=== PATIENT | male | born 1940 | race Caucasian/White ===

== ENCOUNTER 2016-11-25 14:02 | Observation (INO) | payer MEDICARE, OTHER ==
[~2016-11-25] VITALS: Ht 175.3 cm; Wt 74.2 kg
[2016-11-25 14:47] LABS: BASOPHILS 0.6 % (0.0-2.0); EOSINOPHILS 2.4 % (0-7); HEMATOCRIT 38.9 % (42.0-54.0); IMMATURE GRANULOCYTES 0.1 % (0-5); LYMPHOCYTES 22.4 % (15-50); MCH 30.4 pg (26.0-34.0); MCHC 33.4 g/dL (31.0-37.0); MCV 90.9 fL (80.0-100.0); MONOCYTES 10.4 % (2-11); NEUTROPHILS 64.1 % (40-80); PLATELET COUNT 215 10x3/uL (130-400); RBC 4.28 10x6/uL (4.20-6.10); RDW 14.6 % (11.5-14.5); WBC 10.5 10x3/uL (4.8-10.8)
[2016-11-25 14:52] LABS: APPEARANCE CLEAR (CLEAR); BILIRUBIN NEGATIVE (NEGATIVE); COLOR YELLOW (YELLOW); GLUCOSE NEGATIVE (NEGATIVE); KETONE NEGATIVE (NEGATIVE); LEUKOCYTE ESTERASE NEGATIVE (NEGATIVE); NITRITE NEGATIVE (NEGATIVE); PROTEIN NEGATIVE (NEGATIVE); SPECIFIC GRAVITY 1.015 (1.005-1.020); UROBILINOGEN NORMAL (NORMAL)
[2016-11-25 14:54] LABS: BACTERIA FEW /hpf (NONE SEEN); RED CELLS - URINE >50 /hpf (0-5); WHITE CELLS - URINE 0-5 /hpf (0-5)
[2016-11-25 14:58] LABS: APTT 29.1 SECONDS (22.8-39.4); INR 0.99 (0.85-1.17)
[2016-11-25 15:10] LABS: ALBUMIN 3.6 g/dL (3.4-5.0); ALKALINE PHOSPHATASE 69 U/L (46-116); ALT (SGPT) 21 U/L (10-68); BILIRUBIN - TOTAL 0.33 mg/dL (0.2-1.3); CALC OSMOLALITY 288 mosm/kg (275-300); CALCIUM 8.9 mg/dL (8.5-10.1); CARBON DIOXIDE 26.2 mmol/L (21.0-32.0); CHLORIDE - SERUM 110 mmol/L (98-107); GLUCOSE 92 mg/dL (74-106); POTASSIUM - SERUM 4.1 mmol/L (3.5-5.1); PROTEIN - SERUM 6.3 g/dL (6.4-8.2); SODIUM 144 mmol/L (136-145); UREA NITROGEN 18 mg/dL (7-18); eGFR NON AFRICAN AMERICAN 77 mL/min (90-120)
--- NOTE | 2016-11-25 18:33 | NUR ---
JUST RECEIVED PT VIA WHEELCHAIR ESCORTED BY HOSPITAL STAFF AND FAMILY. ON ROOM AIR. IV SEEN TO LEFT AC THAT IS CURRENTLY SALINE LOCKED. PT IS ALERT AND ORIENTED. UP AD ELIF. INSTRUCTED TO INFORM STAFF IF NEEDING ASSISTANCE AMBULATING. WILL DO QUICKSTART AND PASS THIS ALONG IN REPORT.
[2016-11-25] MEDS ORDERED: KLONOPIN1 MG PO (18:37)
[2016-11-25] MEDS ORDERED: NAPROSYN500 MG PO (18:37)
[2016-11-25] MEDS ORDERED: ROXICODONE15 MG PO (18:43)
[2016-11-25] MEDS ORDERED: REMERON30 MG PO (18:44)
[2016-11-25] MEDS ORDERED: PROVENTIL HFA6.7 GM INH (18:45)
--- NOTE | 2016-11-25 19:30 | NUR ---
ALERT AND ORIENTED X3 76 Y/O MALE SEEN BY DR CHOI FOR SYNCOPLE EPISODE. NO DEFICITS NOTED AT THIS TIME. IN BED SITTING UP VISITING WITH FRIENDS AND FAMILY AT BEDSIDE. HOB UP SR UP X2, C/L IN REACH. CONTINUE TO MONITOR.
[2016-11-25 20:00] VITALS: BP 181/61
[2016-11-26] VITALS: BP 130/53
[2016-11-26 00:45] VITALS: BP 181/61; Ht 175.3 cm; Wt 74.2 kg
[2016-11-26 04:00] VITALS: BP 137/44
[2016-11-26 04:20] LABS: BASOPHILS 0.8 % (0.0-2.0); EOSINOPHILS 6.2 % (0-7); HEMATOCRIT 38.6 % (42.0-54.0); HEMOGLOBIN 12.8 g/dL (13.5-17.5); IMMATURE GRANULOCYTES 0.4 % (0-5); LYMPHOCYTES 41.3 % (15-50); MCH 30.4 pg (26.0-34.0); MCHC 33.2 g/dL (31.0-37.0); MCV 91.7 fL (80.0-100.0); MEAN PLATELET VOLUME 9.7 fL (7.4-10.4); NEUTROPHILS 39.3 % (40-80); PLATELET COUNT 215 10x3/uL (130-400); RBC 4.21 10x6/uL (4.20-6.10); RDW 14.7 % (11.5-14.5)
[2016-11-26 04:22] LABS: WBC 7.1 10x3/uL (4.8-10.8)
[2016-11-26 04:33] LABS: ANION GAP 9.6 mmol/L (8-16); CARBON DIOXIDE 26.5 mmol/L (21.0-32.0); CHOL - HDL RATIO 6.1 ratio (2.3-4.9); CREATININE - SERUM 1.1 mg/dL (0.6-1.3); LDL-HDL RATIO 4.2 ratio (1.5-3.5); POTASSIUM - SERUM 4.1 mmol/L (3.5-5.1)
--- NOTE | 2016-11-26 04:39 | NUR ---
EYES CLOSED, RESP UNLAB WITH NO S/S OF ACUTE DISTRESS NOTED. HOB UP SR UP X2, C/L IN REACH. DAUGHTERS AT BEDSIDE. CONTINUE TO MONITOR.
[2016-11-26 07:47] VITALS: BP 131/65
--- NOTE | 2016-11-26 10:05 | NUR ---
0715- AM ROUNDING-, REPORT RECEIVED FROM CELL SUPPORT OPERATOR NURSE DIEGO. PT CURRENTLY SITTING UP IN BED WITH EYES OPEN ON CELL PHONE. ON ROOM AIR. NO MONITOR (NON AVAILABLE CURRENTLY). IV SEEN TO LEFT AC THAT IS CURRENLTY SALINE LOCKED. PT IS UP AD ELIF. ALERT AND ORIENTED. NO NEED AT CURRENT TIME. WILL CONTINUE TO MONITOR AND CONTINUE WITH PLAN OF CARE.
--- NOTE | 2016-11-26 11:27 | NUR ---
1100- PT TO RADIOLOGY VIA WHEELCHAIR. 1115- PT BACK FROM RADIOLOGY VIA WHEELCHAIR.
[2016-11-26 11:45] VITALS: BP 138/64
--- NOTE | 2016-11-26 13:04 | NUR ---
3797- PTS CALLED TO INFORM ME ABOUT PTS CHRONIC BACK PAIN WHICH PTS STATED THAT THE DOCTORS ARE THINKING ITS BEING CAUSED BY DIABETIC NEUROPATHY. PTS REQUESTED THAT I PASS THIS ALONG TO DR. OWENS. I INFORMED PTS THAT I WOULD INFORM DR. OWENS IF I SAW HIM ON UNIT AGAIN TODAY. 1312- DR. OWENS ON UNIT. PASSED ALONG THE INFORMATION PTS GAVE ME TO TELL DR. OWENS. DR. OWENS STATED HE WOULD TALK WITH PTS THE NEXT TIME HE SEES HER.
--- NOTE | 2016-11-26 13:38 | NUR ---
REFUSED SCD'S. BEING DISCHARGED HOME.
[2016-11-26] MEDS ORDERED: ASPIRIN325 MG PO (15:12)
[2016-11-26 15:47] VITALS: BP 128/59
--- NOTE | 2016-11-26 16:08 | NUR ---
D/C INSTRUCTIONS EXPLAINED TO PT, D/C PAPERWORK SIGNED AND PLACED IN CHART. IV TO LEFT AC REMOVED WITH CATH TIP INTACT, TOLERATED WELL. PT GETTING BELONGINGS TOGETHER NOW. LUZ ELENA DIOP IS GETTING WHEELCHAIR TO TAKE PT DOWN NOW.
--- NOTE | 2016-11-26 16:10 | NUR ---
PT D/C VIA WHEELCHAIR.
--- NOTE | 2016-12-01 10:08 | EC ---
PATIENT:NO YEE DATE OF SERVICE: 11/25/16 SEX: M MEDICAL RECORD: [id number] DATE OF : 42 LOCATION:D.M2 D.211 AGE OF PATIENT: 76 ADMISSION DATE: 11/25/16 REFERRING PHYSICIAN: INTERPRETING PHYSICIAN: MARA SANTILLAN MD ECHOCARDIOGRAM REPORT ECHO CHARGES 4 ECHO COMPLETE CLINICAL DIAGNOSIS: TIA ECHOCARDIOGRAPHIC MEASUREMENTS (adult normal given) AC root (d.<3.7cm) 3.7 LV Septum d (<1.2 cm> 1.6 Valve Excursion 1.9 LV Septum (systole) 2.1 Left Atria (s.<4.0cm> 3.7 LVPW d(<1.2cm) 1.6 RV (d.<2.3cm) 2.9 LVPW (sytole) 2.3 LV diastole(<5.6CM) 5.9 MV E-F(>70mm/sec) LV systole 3.4 LVOT Diameter 2.2 MV exc.(>10mm) Est.ejection fraction (50-75%) Pericardial Effusion N DOPPLER: LVIT A 59.0 E 71.0 LA RVSP 38.0 LVOT 105 AOP1/2T Asc. Ao 164 RVOT 53.0 RA PA 106 AV Gradient Peak 11.0 AV Mean 4.6 AV Area 2.2 MV Gradient Peak 3.4 MV Mean 0.86 MV Area COMMENTS: E/M Engineer: Magdalena KUMAROE [place] Aide:1 Dr. Santillan TAPE# PACS DATE OF SERVICE: 11/26/2016 FINDINGS: 1. Left ventricular chamber size is within normal limits. Left ventricular systolic function is normal. Overall ejection fraction estimated at 60%. 2. Left atrium is within normal limits at 3.7 cm. Right atrium and right ventricular chamber sizes are moderately dilated. 3. Valvular structures have normal structure and motion. 4. Doppler interrogation only reveals trace mitral and tricuspid regurgitation. No other valvular insufficiency or stenosis. Pulmonary systolic pressure is ECHOCARDIOGRAM REPORT [id number] NO YEE preserved at 38 mmHg. 5. No evidence of pericardial effusion or left ventricular thrombus. TRANSINT:[id number] Voice Confirmation ID: [id number] DOCUMENT ID: [id number] MARA SANTILLAN MD at 1008 CC: [id number] DICTATION DATE: 11/26/16 121 [employer] REPRESENTATIVE: 11/26/162029 DIS IN 11/26/16 [facility] [address] [place], [facility]
== END 2016-11-26 16:11 | disposition home or self-care (01) ==
LOC: D.ER 14:02 → OBSVTIME 17:55 → D.M2 17:55
PROVIDERS: Emergency Medicine; ADMIT Family Medicine Adult Medicine
DX: I66.02 Occlusion and stenosis of left middle cerebral artery (principal); F17.203 Nicotine dependence unspecified, with withdrawal; D64.9 Anemia, unspecified; G89.29 Other chronic pain; M54.9 Dorsalgia, unspecified